=== PATIENT | female | born 1970 | race Caucasian/White ===

== ENCOUNTER 2019-01-12 08:59 | Emergency (ER) | payer MEDICARE, MEDICAID ==
[2019-01-12] MEDS ORDERED: NS 0.9% 1000 ML** 1,000 ML IV ONE (09:34)
--- NOTE | 2019-01-12 09:37 | ED ---
Altered Mental Status - HPI Summary HPI Summary: Pt. is a 48 y.o female who presents to the ER for AMS. Pt. has a hx of MS that is progressing per family. She follows with neurologist at [facility]. Pt.'s states that pt. woke up today and was confused as to where she was and also felt dizzy. Pt. describes dizzy as feeling off balance. states pt. is returning to baseline but still seems a bit confused. Pt. denies recent illness, h/a, fever, cough, CP, abd. pain, V/D, urinary sxs. Pt. has chronic weakness in bilateral LEs. notes she has had seizures in the past secondary to a medication. Symptoms are moderate in severity. No current modifying factors. notes that pt. had a similar episode last month after she took too much baclofen. notes pt. was having bad muscle spasms in right leg last night and took 5 baclofen. Pt. states she usually take 3 at night. - History Of Current Complaint Chief Complaint: EDAltMentalStatus Stated Complaint: WEAKNESS, CONFUSION , PER EMS Time Seen by Provider: 01/12/19 09:22 Hx Obtained From: Patient, Family/Sock Boarder - Allergies/Home Medications Allergies/Adverse Reactions: Allergies Allergy/AdvReac Type Severity Reaction Status Date / Time dalfampridine [From Ampyra] Allergy See Comment Verified 01/12/19 09:12 Home Medications: Home Medications ARIPiprazole [Aripiprazole] 15 mg PO DAILY 01/12/19 [History Confirmed 01/12/19] Cholecalciferol (Vitamin D3) [Vitamin D3] 5,000 unit PO DAILY 01/12/19 [History Confirmed 01/12/19] Mirabegron [Myrbetriq] 50 mg PO DAILY 01/12/19 [History Confirmed 01/12/19] Modafinil [Provigil] 300 mg PO DAILY 01/12/19 [History Confirmed 01/12/19] Norethindrone 0.35 mg PO DAILY 01/12/19 [History Confirmed 01/12/19] Tamsulosin CAP* [Flomax CAP*] 1 cap PO DAILY 01/12/19 [History Confirmed ] Tizanidine HCl [Zanaflex] 2 mg PO TID 01/12/19 [History Confirmed 01/12/19] buPROPion HCl [Bupropion HCl Sr] 1 tab PO BID 01/12/19 [History Confirmed ] busPIRone TAB* [Buspar TAB *] 15 mg PO BID 01/12/19 [History Confirmed 01/12/19] PMH/Surg Hx/FS Hx/Imm Hx Previously Healthy: Yes Infectious Disease History: No Infectious Disease History: Denies: Traveled Outside the [place] in Last 30 Days - Family History Known Family History: Positive: Non-Contributory - Social History Occupation: Disabled Lives: With Family Alcohol Use: None Substance Use Type: Reports: None Smoking Status (MU): Never Smoked Tobacco Review of Systems Constitutional: Negative Negative: Fever, Chills Eyes: Negative ENT: Negative Cardiovascular: Negative Negative: Palpitations, Chest Pain Respiratory: Negative Negative: Shortness Of Breath, Cough Gastrointestinal: Negative Negative: Abdominal Pain, Vomiting, Diarrhea, Nausea Genitourinary: Negative Negative: dysuria Musculoskeletal: Negative Skin: Negative Neurological: Other - dizzy, confusion All Other Systems Reviewed And Are Negative: Yes Physical Exam Triage Information Reviewed: Yes Vital Signs On Initial Exam: Initial Vitals Temp Pulse Resp BP Pulse Ox 98.7 F 82 10 126/78 96 01/12/19 09:12 01/12/19 09:12 01/12/19 09:12 01/12/19 09:12 01/12/19 09:12 Vital Signs Reviewed: Yes Appearance: Positive: No Pain Distress - Pt. sitting up in bed in NAD. Slow to answer questions. present. Skin: Positive: Warm, Dry Head/Face: Positive: Normal Head/Face Inspection Eyes: Positive: Normal, EOMI, HELENE, Conjunctiva Clear Neck: Positive: Supple, Nontender. Negative: Nuchal Rigidity Respiratory/Lung Sounds: Positive: Clear to Auscultation, Breath Sounds Present. Negative: Rales, Rhonchi, Wheezes Cardiovascular: Positive: Normal, RRR Abdomen Description: Positive: Nontender, Soft Neurological: Positive: Normal, CN Intact II-III, Finger to Nose - slightly off bilaterally, Facial Symmetry, Speech Normal, Other - Oriented to person place and time. Pt states her name is "29" when asked.. Negative: Slurred Speech, Pronator Drift Present Psychiatric: Positive: Depressed - Duglas Coma Scale Best Eye Response: 4 - Spontaneous Best Motor Response: 6 - Obeys Commands Best Verbal Response: 5 - Oriented Coma Scale Total: 15 Diagnostics - Vital Signs Vital Signs Temp Pulse Resp BP Pulse Ox 01/12/19 09:12 98.7 F 82 10 126/78 96 - Laboratory Result Diagrams: 01/12/19 09:41 01/12/19 09:41 Lab Statement: Any lab studies that have been ordered have been reviewed, and results considered in the medical decision making process. Altered Mental Statu Course/Dx - Course Course Of Treatment: Pt. presenting for evaluation after waking up with confusion and dizziness. She is afebrile with stable VS. Pt. has chronic LE weakness. Otherwise pt. has no focal neuro. deficits on exam. Labs are unremarkable. CT brain and CXR negative for acute findings per radiology. Orthostatic VS unremarkable. ECG done at 0942 shows a sinus rhythm of 82 bpm, normal axis, no ST elevation or depression. 1125: Pt.'s nurse attempted to ambulate pt. to the bedside toilet. Pt. states she would like to be dc home at this time. I spoke with oncall neurologist at [facility], Dr. Banda, and discussed case. He has no other recommendations at this time and agrees with dc home for outpt. f.u. Suspect mediation rxn. U/A has small wbc and leukocytes. Pt. states she has a hx of UTIs and has been having a difficult time voiding today which she states is usually her first sxs. Will cover with keflex. To call neuro. on monday for close f.u. To return to ER if sxs change or worsen. Pt. and understand and agree with plan. - Diagnoses Differential Diagnosis/HQI/PQRI: Hypoglycemia, Intracranial Bleed, Medication Reaction, Metabolic Disorder, Postictal State, Sepsis, TIA Provider Diagnoses: Confusion, Suspected urinary tract infection, Medication reaction Discharge - Sign-Out/Discharge Documenting (check all that apply): Patient Departure Patient Received Moderate/Deep Sedation with Procedure: No - Discharge Plan Condition: Improved Disposition: HOME Prescriptions: Cephalexin CAP* [Keflex CAP*] 500 mg PO BID #20 cap Patient Education Materials: Urinary Tract Infection in Women (ED), Altered Mental Status (ED) Referrals: Bhavin TANG,Thomas Rojas [Primary Care Provider] - Additional Instructions: Call your neurologist on Monday for a close follow up appointment Take antibiotic as directed Return to ER if symptoms change or worsen - Billing Disposition and Condition Condition: IMPROVED Disposition: Home
[2019-01-12 09:56] LABS: ABS Eosinophils 0.1 10^3/ul (0-0.6); ABS Lymphocytes 1.2 10^3/ul (1.0-4.8); ABS Monocytes 0.6 10^3/ul (0-0.8); ABS Neutrophils 3.9 10^3/ul (1.5-7.7); Eosinophil % 2.3 %; Hematocrit 40 % (35-47); Hemoglobin 13.5 g/dL (12.0-16.0); Lymphocyte % 19.8 %; Mean Corpuscular HGB Conc 34 g/dL (31-36); Mean Corpuscular Hemoglobin 32 pg (27-31); Mean Corpuscular Volume 94 fL (80-97); Mean Platelet Volume 8.7 fL (7.4-10.4); Platelet Count 316 10^3/uL (150-450); Red Blood Count 4.24 10^6 /uL (3.70-4.87); Red Cell Distribution Width 12 % (10.5-15); White Blood Count 5.8 10^3/uL (3.5-10.8)
[2019-01-12 10:21] LABS: ALT 19 U/L (7-52); AST 16 U/L (13-39); Albumin/Globulin Ratio 1.7 (1-3); Alkaline Phosphatase 57 U/L (34-104); Anion Gap 5 mmol/L (2-11); BUN/Creatinine Ratio 20.2 (8-20); Blood Urea Nitrogen 17 mg/dL (6-24); C Reactive Protein < 1.00 mg/L (<8.01); CO2 Carbon Dioxide 28 mmol/L (22-32); Chloride 108 mmol/L (101-111); EGFR African American 87.2 (>60); EGFR Non-African American 72.1 (>60); Globulin 2.3 g/dL (2-4); Glucose 115 mg/dL (70-100); Magnesium 2.5 mg/dL (1.9-2.7); Potassium 4.5 mmol/L (3.5-5.0); Sodium 141 mmol/L (135-145); Total Protein 6.3 g/dL (6.4-8.9)
[2019-01-12 10:23] LABS: Troponin I 0.01 ng/mL (<0.04)
[2019-01-12 10:36] LABS: Urine Appearance Cloudy; Urine Bacteria Absent (Absent); Urine Bilirubin Negative (Negative); Urine Blood Negative (Negative); Urine Color Yellow; Urine Glucose Negative (Negative); Urine Ketones Negative (Negative); Urine Nitrite Negative (Negative); Urine Protein Negative (Negative); Urine Red Blood Cell Trace(0-2/hpf) (Absent); Urine Specific Gravity 1.021 (1.010-1.030); Urine Squamous Epithelial Cell Present (Absent); Urine Urobilinogen Negative (Negative); Urine White Blood Cell 2+(11-20/hpf) (Absent)
[2019-01-12 11:13] LABS: TSH (Thyroid Stimulating Horm) 0.76 mcIU/mL (0.34-5.60)
[2019-01-12 12:17] VITALS: BP 130/82
== END 2019-01-12 12:17 | disposition home or self-care (01) ==
LOC: ED 08:59 → MERGE 08:59 → ED 12:17
DX: R41.0 Disorientation, unspecified (principal); T50.995A Adverse effect of other drugs, medicaments and biological substances, initial encounter; Z88.8 Allergy status to other drugs, medicaments and biological substances
CPT/HCPCS: 36415; 70450; 71045; 80053; 81003; 81015; 83605; 83735; 84443; 84484; 85025; 86140; 87086; 93005; 96360; 96361; 99284